=== PATIENT | female | born 1955 | race Two or more races ===

== ENCOUNTER → 2024-09-26 | Outpatient (CLI) | payer MEDICARE, SELFPAY ==
--- NOTE | 2024-09-26 13:30 | ECHO_ITS ---
Transthoracic Echo Report Ht (in): 59 Wt (lb): 110 Exam Location: Echo Lab Status: Outpatient Fiscal Officer: Ching White Indications: Procedure Performed: BP: / HR: Rhythm: Sinus Technical Quality: Fair MEASUREMENTS (Male / Female) Normal Values 2D ECHO LV Diastolic Diameter PLAX 4.1 cm 4.2 - 5.9 / 3.9 - 5.3 cm LV Systolic Diameter PLAX 2.6 cm IVS Diastolic Thickness 1.0 cm 0.6 - 1.0 / 0.6 - 0.9 cm LVPW Diastolic Thickness 0.8 cm 0.6 - 1.0 / 0.6 - 0.9 cm LV Relative Wall Thickness 0.4 LVOT Diameter 1.7 cm LA Volume Index 23.5 cm?/m? 16 - 28 cm?/m? Ascending Aorta Diameter 2.3 cm M-MODE Aortic Root Diameter MM 2.6 cm LA Systolic Diameter MM 3.8 cm LA Ao Ratio MM 1.5 AV Cusp Separation MM 1.8 cm DOPPLER AV Peak Velocity 133.0 cm/s AV Peak Gradient 7.1 mmHg AV Mean Gradient 3.0 mmHg AV Velocity Time Integral 27.1 cm LVOT Peak Velocity 107.0 cm/s LVOT Peak Gradient 4.6 mmHg LVOT Velocity Time Integral 24.8 cm AV Area Cont Eq vti 2.1 cm? AV Area Cont Eq pk 1.8 cm? MV Peak Velocity 90.4 cm/s MV Peak Gradient 3.3 mmHg MV Mean Velocity 65.4 cm/s MV Mean Gradient 2.0 mmHg MV Area PHT 3.3 cm? Mitral E Point Velocity 79.5 cm/s Mitral A Point Velocity 96.5 cm/s Mitral E to A Ratio 0.8 LV E' Lateral Velocity 8.7 cm/s Mitral E to LV E' Lateral Ratio 9.1 LV E' Septal Velocity 8.7 cm/s Mitral E to LV E' Septal Ratio 9.1 TR Peak Velocity 191.5 cm/s TR Peak Gradient 14.7 mmHg FINDINGS Left Ventricle Normal left ventricular size, wall thickness, systolic function with no obvious regional wall motion abnormalities. The ejection fraction is visually estimated at 60-65%. Right Ventricle The right ventricle is normal in size and systolic function. The estimated right ventricular systoli c pressure, 22mmHg. RAP 5. Left Atrium The left atrium is normal by two-dimensional, color flow and Doppler imaging with no structural abnormalities, no thrombus formation present. Right Atrium The right atrium is normal by two-dimensional imaging, color flow and Doppler imaging with no struct ural abnormalities, no thrombus formation present. Atrial Septum The interatrial septum appears normal with no evidence of a shunt. Aorta The aorta is normal by two-dimensional, color flow and Doppler interrogation. Mitral Valve The mitral valve is normal by two-dimensional, color flow and Doppler interrogation. There is mild mitral valve regurgitation. Aortic Valve The aortic valve is trileaflet and normal by two-dimensional, color flow and Doppler interrogation. There is trace aortic valve regurgitation. Tricuspid Valve The tricuspid valve is normal by two-dimensional, color flow and Doppler interrogation. There is mil d tricuspid valve regurgitation. Pulmonic Valve There is no significant pulmonic valve regurgitation. Vessels The pulmonary artery appears normal. The inferior vena cava pulmonary and hepatic veins appear ritesh l. Pericardium The pericardium is normal by two-dimensional imaging. There is no significant pericardial effusion. CONCLUSIONS Indication: Organ-limited amyloidosis Normal LV size and function. Stage I diastolic dysfunction. Estimated EF 60-65% Normal RV size and function Mild MR, TR. Trace AI. Dominick Marquez (Electronically Signed) Final Date: 26 September 2024 16:42
== END | disposition home or self-care (01) ==
LOC: SDIM 13:34
PROVIDERS: PCP Family Medicine; Referring Provider Internal Medicine Hematology & Oncology; Visit Provider Internal Medicine Hematology & Oncology
DX: I08.3 Combined rheumatic disorders of mitral, aortic and tricuspid valves (principal)
CPT/HCPCS: 93306

== ENCOUNTER → 2024-12-31 | Outpatient (CLI) | payer MEDICARE, SELFPAY ==
--- NOTE | 2024-12-31 14:00 | ECHO_ITS ---
Transthoracic Echo Report Ht (in): 59 Wt (lb): 109 Exam Location: Echo Lab Status: Pread[employer] Farmer: SNEHA Jett^^^^ Indications: Procedure Performed: BP: / HR: 64 Rhythm: Sinus Technical Quality: Fair MEASUREMENTS (Male / Female) Normal Values 2D ECHO LV Diastolic Diameter PLAX 3.5 cm 4.2 - 5.9 / 3.9 - 5.3 cm LV Systolic Diameter PLAX 2.4 cm IVS Diastolic Thickness 0.8 cm 0.6 - 1.0 / 0.6 - 0.9 cm LVPW Diastolic Thickness 0.8 cm 0.6 - 1.0 / 0.6 - 0.9 cm LV Relative Wall Thickness 0.5 LVOT Diameter 1.3 cm Aortic Root Diameter 2.7 cm LA Systolic Diameter LX 2.9 cm 3.0 - 4.0 / 2.7 - 3.8 cm LA Volume Index 48.8 cm?/m? 16 - 28 cm?/m? Ascending Aorta Diameter 2.3 cm DOPPLER AV Peak Velocity 146.0 cm/s AV Peak Gradient 8.5 mmHg AV Mean Gradient 5.0 mmHg AV Velocity Time Integral 37.0 cm LVOT Peak Velocity 76.1 cm/s LVOT Peak Gradient 2.3 mmHg LVOT Velocity Time Integral 19.7 cm LVOT Cardiac Index 1161.8 cm?/min?m? AV Area Cont Eq vti 0.7 cm? AV Area Cont Eq pk 0.7 cm? MV Area PHT 2.2 cm? MR Peak Velocity 343.0 cm/s MR Peak Gradient 47.1 mmHg Mitral E Point Velocity 87.0 cm/s Mitral A Point Velocity 88.0 cm/s Mitral E to A Ratio 1.0 LV E' Lateral Velocity 9.8 cm/s Mitral E to LV E' Lateral Ratio 8.9 LV E' Septal Velocity 7.7 cm/s Mitral E to LV E' Septal Ratio 11.2 TR Peak Velocity 273.0 cm/s TR Peak Gradient 29.8 mmHg PV Peak Velocity 70.3 cm/s PV Peak Gradient 2.0 mmHg RVOT Peak Velocity 67.2 cm/s FINDINGS Left Ventricle Normal left ventricular size, wall thickness, systolic function with no obvious regional wall motion abnormalities. There is grade I diastolic dysfunction of the left ventricle (impaired relaxation pattern). The left ventricular ejection fraction is normal, estimated at 55-60%. Right Ventricle The right ventricle is normal in size and systolic function. The estimated right ventricular systolic pressure, 35 mmHg. Left Atrium Mildly increased left atrial volume 48.8 mL/m?. Right Atrium The right atrium is normal by two-dimensional imaging, color flow and Doppler imaging with no structural abnormalities, no thrombus formation present. Atrial Septum The interatrial septum appears normal with no evidence of a shunt. Aorta The aorta is normal by two-dimensional, color flow and Doppler interrogation. Mitral Valve [id number] mitral regurgitation. Mild mitral annular calcification. Aortic Valve Aortic valve sclerosis. Tricuspid Valve There is mild tricuspid valve regurgitation. Pulmonic Valve Trivial pulmonic valve regurgitation. Vessels The pulmonary artery appears normal. The inferior vena cava pulmonary and hepatic veins appear normal. Pericardium The pericardium is normal by two-dimensional imaging. There is no significant pericardial effusion. CONCLUSIONS Indication: Amyloidosis-organ limited Normal LV size and function with an estimated ejection fraction of 55 to 60%. Mild LVH. Stage I diastolic dysfunction. Normal RV size and function. Estimated RVSP of 35 mmHg. Mildly dilated LA. Mild to moderate MR. Mild TR Rojas Lomas (Electronically Signed) Final Date: 01 January 2025 06:58
== END | disposition home or self-care (01) ==
PROVIDERS: PCP Family Medicine; Referring Provider Internal Medicine Hematology & Oncology; Visit Provider Internal Medicine Hematology & Oncology
DX: I50.30 Unspecified diastolic (congestive) heart failure (principal); I08.1 Rheumatic disorders of both mitral and tricuspid valves
CPT/HCPCS: 93306